=== PATIENT | male | born 1935 | race Two or more races ===

== ENCOUNTER 2022-02-04 00:09 | Emergency (ER) | payer OTHER ==
[~2022-02-04] VITALS: Ht 177.8 cm; Wt 74.8 kg
[2022-02-04] MEDS ORDERED: MECLIZINE HCL 12.5 MG TABLET ONE (00:48)
[2022-02-04 00:59] LABS: BASOPHILS # (AUTO) 0.2 K/uL (0.0-0.2); BASOPHILS % (AUTO) 1.1 % (0.0-2.0); EOSINOPHILS % (AUTO) 1.9 % (0.0-6.0); HEMATOCRIT 41 % (39-51); HEMOGLOBIN 13.6 g/dL (13.5-17.5); LYMPHOCYTES # (AUTO) 10.2 K/uL (0.8-4.8); MEAN CORPUSCULAR HGB CONC 34 g/dl (31.0-36.0); MEAN CORPUSCULAR VOLUME 87 fL (80-96); MONOCYTES % (AUTO) 5.9 % (2.0-12.0); NEUTROPHILS # (AUTO) 5.3 K/uL (1.8-8.9); NEUTROPHILS % (AUTO) 31.1 % (43.0-81.0); PLATELET COUNT (AUTO) 181 K/uL (150-450); RED BLOOD CELL COUNT(AUTO) 4.68 MIL/uL (4.5-6.0)
[2022-02-04] MEDS ORDERED: MECLIZINE HCL 12.5 MG TABLET PO ONE (01:00)
[2022-02-04] MEDS ORDERED: IV NS 0.9% 500 ML BAG IV ONE (01:00)
--- NOTE | 2022-02-04 01:11 | NUR ---
IV LINE ESTABLISHED, [id number]
--- NOTE | 2022-02-04 01:15 | NUR ---
TO ER BED 9. [id number] FROM HOME C/O DIZZINESS X TODAY. PT IS ALERT AND ORIENTED. RR EVEN AND NONLABORED. CONNECTED TO MONITOR. AWAITING MD SARMIENTO
--- NOTE | 2022-02-04 01:15 | NUR ---
BLOOD COLLECTED AND SENT TO LAB
--- NOTE | 2022-02-04 01:22 | NUR ---
PT TAKEN TO CT SCAN
[2022-02-04 01:28] LABS: CALCIUM, SERUM 9.3 mg/dL (8.5-10.1); CARBON DIOXIDE 30 mmol/L (21-32); CHLORIDE 98 mmol/L (98-107); CREATININE 1.2 mg/dL (0.6-1.3); GLUCOSE 105 mg/dL (74-106); POTASSIUM 4.6 mmol/L (3.5-5.1); SODIUM SERUM 134 mmol/L (136-145); UREA NITROGEN, BLOOD 18 mg/dL (7-18)
--- NOTE | 2022-02-04 01:38 | NUR ---
URINE COLLECTED AND SENT TO LAB
[2022-02-04 01:44] LABS: ALANINE AMINOTRANSFERASE 28 U/L (12-78); ALBUMIN 3.6 g/dL (3.4-5.0); ALKALINE PHOSPHATASE 93 U/L (46-116); ASPARTATE AMINOTRANSFERASE 23 U/L (15-37); BILIRUBIN,DIRECT 0.1 mg/dL (0.0-0.2); BILIRUBIN,TOTAL 0.5 mg/dL (0.2-1.0); TOTAL PROTEIN, SERUM 6.5 g/dL (6.4-8.2)
[2022-02-04 02:10] LABS: BILIRUBIN,URINE NEGATIVE (NEGATIVE); COLOR,URINE YELLOW (YELLOW); LEUKOCYTE ESTERASE ,URINE NEGATIVE (NEGATIVE); NITRITE, URINE NEGATIVE (NEGATIVE); PROTEIN,URINE NEGATIVE (NEGATIVE); UGLUCOSE NEGATIVE (NEGATIVE); UROBILINOGEN,URINE 0.2 EU/dL (0.2)
--- NOTE | 2022-02-04 06:24 | NUR ---
[facility] AT BEDSIDE FOR TRANSPORTATION
--- NOTE | 2022-02-04 06:40 | NUR ---
PT WAS PICKED UP BY [facility] AND DISCHARGED HOME IN STABLE CONDITION. IV removed. Catheter intact and site benign. Pressure and 4x4 applied to site. No bleeding noted.Patient discharged to home in stable condition. Written and verbal after care instructions given. Patient verbalizes understanding of instruction.
[2022-02-04 06:48] VITALS: BP 141/98
== END 2022-02-04 06:48 | disposition home or self-care (01) ==
LOC: ER 00:10
DX: R42 Dizziness and giddiness (principal)
CPT/HCPCS: 99285; 96360; 70450; 71045; 93005; 85025; 80048; 80076; 85652; 81003; 36415; 84484 ×2; 85730; J8597; J7040

== ENCOUNTER 2022-07-01 18:57 | Emergency (ER) | payer OTHER ==
[~2022-07-01] VITALS: Ht 175.3 cm; Wt 68.0 kg
--- NOTE | 2022-07-01 19:07 | NUR ---
[id number], FACIAL PAIN, LAC TO BRIDGE OF NOSE AND R HAND S/P GLF AT A STORE. DENIES KO. AMBULATORY W/ A CANE. PT AAOX3, PLACED COMFORTABLY IN BED, VITALS CHECKED.
--- NOTE | 2022-07-01 19:23 | NUR ---
Pankaj haywood in [facility] - 07/01/22 at 1927 by [employer] AT PT'S BEDSIDE
[2022-07-01] MEDS ORDERED: TDAP [DIPH/PERTUSSIS/TET] 0.5 ML VIAL IM ONE ×2 (19:30→19:40)
--- NOTE | 2022-07-01 19:47 | NUR ---
PROVIDE PT WITH URINAL ;AWAITING URINE SAMPLE
--- NOTE | 2022-07-01 19:47 | NUR ---
LNA AT PT'S BEDSIDE
--- NOTE | 2022-07-01 19:52 | NUR ---
URINE COLLECTED AND SENT TO LAB
--- NOTE | 2022-07-01 19:53 | NUR ---
PNEUMATIC TESTER AT PT'S BEDSIDE
--- NOTE | 2022-07-01 19:58 | NUR ---
20GA TO LAC ESTABLISHED
--- NOTE | 2022-07-01 20:05 | NUR ---
Pankaj haywood in ED - 07/01/22 at 2007 by [address] PT TO CT ACCOMPANIED BY TECH
[2022-07-01 20:12] LABS: BASOPHILS # (AUTO) 0.1 K/uL (0.0-0.2); BASOPHILS % (AUTO) 1.1 % (0.0-2.0); EOSINOPHILS % (AUTO) 2.6 % (0.0-6.0); HEMATOCRIT 43 % (39-51); HEMOGLOBIN 14.2 g/dL (13.5-17.5); LYMPHOCYTES # (AUTO) 5.5 K/uL (0.8-4.8); LYMPHOCYTES % (AUTO) 43.7 % (20.0-44.0); MEAN CORPUSCULAR HGB CONC 33 g/dl (31.0-36.0); MEAN CORPUSCULAR VOLUME 87 fL (80-96); MONOCYTES # (AUTO) 1.1 K/uL (0.1-1.30); MONOCYTES % (AUTO) 8.6 % (2.0-12.0); NEUTROPHILS # (AUTO) 5.6 K/uL (1.8-8.9); PLATELET COUNT (AUTO) 200 K/uL (150-450); RED BLOOD CELL COUNT(AUTO) 4.86 MIL/uL (4.5-6.0); WHITE BLOOD COUNT (AUTO) 12.7 K/uL (4.3-11.0)
--- NOTE | 2022-07-01 20:15 | NUR ---
PT TO CT ACCOMPANIED BY TECH
[2022-07-01 20:20] LABS: CALCIUM, SERUM 9.4 mg/dL (8.5-10.1); CARBON DIOXIDE 27 mmol/L (21-32); CHLORIDE 92 mmol/L (98-107); CREATININE 1.2 mg/dL (0.6-1.3); GLUCOSE 93 mg/dL (74-106); SODIUM SERUM 126 mmol/L (136-145); UREA NITROGEN, BLOOD 12 mg/dL (7-18)
[2022-07-01 20:24] LABS: CREATINE KINASE, TOTAL 599 U/L (39-308)
[2022-07-01 20:25] LABS: ALANINE AMINOTRANSFERASE 29 U/L (12-78); ALBUMIN 3.8 g/dL (3.4-5.0); ALKALINE PHOSPHATASE 101 U/L (46-116); ASPARTATE AMINOTRANSFERASE 40 U/L (15-37); BILIRUBIN,DIRECT 0.3 mg/dL (0.0-0.2); BILIRUBIN,TOTAL 1.4 mg/dL (0.2-1.0); TOTAL PROTEIN, SERUM 6.3 g/dL (6.4-8.2)
[2022-07-01 20:26] LABS: ALCOHOL, BLOOD < 3 mg/dL (0-0)
--- NOTE | 2022-07-01 20:29 | NUR ---
PT RETURNED TO ER BED [address]
--- NOTE | 2022-07-01 20:32 | NUR ---
EMT AT PT'S BEDSIDE FOR EKG
[2022-07-01 20:38] LABS: BILIRUBIN,URINE NEGATIVE (NEGATIVE); COLOR,URINE YELLOW (YELLOW); LEUKOCYTE ESTERASE ,URINE NEGATIVE (NEGATIVE); NITRITE, URINE NEGATIVE (NEGATIVE); PH,URINE 7.5 (5.0-8.0); PROTEIN,URINE NEGATIVE (NEGATIVE); UGLUCOSE NEGATIVE (NEGATIVE); UROBILINOGEN,URINE 0.2 EU/dL (0.2)
--- NOTE | 2022-07-01 20:45 | NUR ---
PT W/ "PRESSURE" IN BLADDER, DIFFICULTY VOIDING. MD MADE AWARE. WILL CHECK PT W/ BLADDER SCAN.
[2022-07-01] MEDS ORDERED: LIDOCAINE HCL/PF 1% 30 ML VIAL TP ONE (21:00)
--- NOTE | 2022-07-01 21:00 | NUR ---
BLADDER SCAN 850ML. INSERTED FC 16FR WITH URINE OUTPUT.
[2022-07-01] MEDS ORDERED: LIDOCAINE 2% JEL UROJET 10 ML MM ONE (21:01)
[2022-07-01 21:04] LABS: BACTERIA,URINE Few /HPF (None Seen); SQUAMOUS EPITHELIAL CELL,UR Few /HPF (None Seen); WBC,URINE 0-2 /HPF (0-3)
[2022-07-01] MEDS ORDERED: LIDOCAINE HCL/PF 1% 30 ML SDV ONE (21:06)
--- NOTE | 2022-07-01 21:24 | NUR ---
AT PT'S BEDSIDE FOR SUTURE CARE TO PT'S FACE
[2022-07-01] MEDS ORDERED: HYDROCODONE/APAP 5/325MG TABLET PO ONE (22:00)
[2022-07-01] MEDS ORDERED: HYDROCODONE/APAP 5/325MG TABLET ONE (22:08)
--- NOTE | 2022-07-01 22:22 | NUR ---
RYAN EPRP PAGED PER DR YIN.
--- NOTE | 2022-07-01 22:37 | NUR ---
COVID SWAB TAKEN SENT TO LAB
[2022-07-01] MEDS ORDERED: IV NS 0.9% 500 ML BAG IV ONE (23:00)
--- NOTE | 2022-07-01 23:46 | NUR ---
PT HAD BM X1. CLEANED UP, MADE COMFORTABLE, NEEDS MET.
--- NOTE | 2022-07-01 23:49 | NUR ---
NS DRIP STARTED 2308 STOP TIME AT [id number]
[2022-07-02] VITALS: BP 143/88
--- NOTE | 2022-07-02 01:47 | NUR ---
PT ACCEPTED TO [facility] BY DR RM. ROOM [id number]. # FOR REPORT [phone]. [facility] ETA [id number].
--- NOTE | 2022-07-02 02:17 | NUR ---
REPORT GIVEN TO JO ELIZABETH AT [facility] 4W UNIT
--- NOTE | 2022-07-02 02:33 | NUR ---
REPORT GIVEN TO HILDA Choudhary WITH [facility] 96
--- NOTE | 2022-07-02 02:44 | NUR ---
[facility] AT PT'S BEDSIDE TO TRANSFER TO [facility].
== END 2022-07-02 03:00 | disposition short-term general hospital (02) ==
LOC: ER 18:59
DX: S52.514A Nondisplaced fracture of right radial styloid process, initial encounter for closed fracture (principal); S61.411A Laceration without foreign body of right hand, initial encounter; S01.81XA Laceration without foreign body of other part of head, initial encounter; R55 Syncope and collapse; M62.82 Rhabdomyolysis; E87.1 Hypo-osmolality and hyponatremia; R33.9 Retention of urine, unspecified; R31.9 Hematuria, unspecified; Z20.822 Contact with and (suspected) exposure to COVID-19; W01.0XXA Fall on same level from slipping, tripping and stumbling without subsequent striking against object, initial encounter; Y93.89 Activity, other specified; Y92.410 Unspecified street and highway as the place of occurrence of the external cause; Y99.8 Other external cause status
CPT/HCPCS: 12002; 12011; 29125; 99285; 90471; 51702; 93005; 90715; 71045; 72170; 73130; 72125; 70450; 70486; 85025; 80048; 82550; 80076; 81001; 36415; 84484; 85730; 82962; 82553; 87426; 80320; 80307; J3490 ×3; J7040; A6403; C9803; G0480